=== PATIENT | female | born 1955 | race Caucasian/White ===

== ENCOUNTER 2021-05-22 17:41 | Outpatient (CLI) | payer MEDICARE, OTHER, SELFPAY ==
[2021-05-28 10:54] LABS: HPV HC, High Risk Negative
== END 2021-05-22 23:59 | disposition home or self-care (01) ==
PROVIDERS: PCP Family Medicine; Visit Provider Family Medicine
DX: Z12.4 Encounter for screening for malignant neoplasm of cervix (principal)
CPT/HCPCS: 87624; 88175; G0145